=== PATIENT | male | born 1945 | race Caucasian/White ===

== ENCOUNTER → 2021-05-20 | Day surgery (SDC) | payer OTHER, BC ==
[2021-05-19 11:16] VITALS: BMI 22.4
[2021-05-20 13:10] VITALS: TEMP 98
[2021-05-20 13:51] VITALS: BP 130/76; PULSE 75
== END | disposition home or self-care (01) ==
LOC: JASU-ENDO 04:48
PROVIDERS: ATTEND Internal Medicine Gastroenterology
PROC: 0DBH8ZX Excision of Cecum, Via Natural or Artificial Opening Endoscopic, Diagnostic (ICD-10-PCS; principal; 2021-05-20 13:00)
DX: Z12.11 Encounter for screening for malignant neoplasm of colon (principal); Z86.010 Personal history of colon polyps; D12.0 Benign neoplasm of cecum; K57.30 Diverticulosis of large intestine without perforation or abscess without bleeding; Z98.0 Intestinal bypass and anastomosis status
CPT/HCPCS: 88305-TC

== ENCOUNTER 2022-04-04 13:54 | Inpatient (IN) | payer OTHER, BC ==
[2022-04-04] MEDS ORDERED: chlordiazePOXIDE HCL 25 MG CAPSULE PO ONE (14:41)
[2022-04-04] MEDS ORDERED: LACTATED RINGERS SOLUTION 1000 ML INFUS.BAG IV ONE (14:41)
[2022-04-04] MEDS ORDERED: chlordiazePOXIDE HCL 25 MG CAPSULE ONE (14:47)
[2022-04-04 15:16] LABS: EOS % 0.7 % (0-4.5); HEMATOCRIT 41.3 % (35.4-49); HEMOGLOBIN 14.2 GM/dL (11.7-16.9); LYMPH % 20.7 % (8-40); MCH 33.6 pg (25.7-33.7); MCHC 34.5 g/dl (32.0-35.9); MEAN CELL VOLUME 97.4 fl (80-96); MEAN PLT VOLUME 7.7 fl (7.5-11.1); NEUT % 65.6 % (42.8-82.8); PLATELET COUNT 249 10^3/uL (134-434); RBC 4.25 M/mm3 (4.00-5.60); RDW 12.7 % (11.9-15.9); WHITE BLOOD COUNT 4.9 K/mm3 (4.0-10.0)
[2022-04-04 15:30] LABS: ALBUMIN 3.9 g/dl (3.4-5.0); CALCIUM 9.1 mg/dL (8.5-10.1)
[2022-04-04 15:31] LABS: BLOOD UREA NITROGEN 12.9 mg/dL (7-18)
[2022-04-04 15:35] LABS: BILIRUBIN,TOTAL 0.4 mg/dL (0.2-1); TOT PROT 6.8 g/dl (6.4-8.2)
[2022-04-04 16:34] LABS: URINE APPEARANCE CLEAR; URINE BILIRUBIN NEGATIVE (NEGATIVE); URINE COLOR YELLOW; URINE GLUCOSE (UA) NEGATIVE (NEGATIVE); URINE KETONE NEGATIVE (NEGATIVE); URINE LEUK ESTERASE NEGATIVE (NEGATIVE); URINE NITRITE NEGATIVE (NEGATIVE); URINE PROTEIN NEGATIVE (NEGATIVE); URINE UROBILINOGEN 0.2 mg/dL (0.2-1.0)
[2022-04-04] MEDS ORDERED: dilTIAZem HCL 50 MG/10 ML - 10 ML VIAL IVPUSH ONE ×2 (17:06→21:21)
[2022-04-04] MEDS ORDERED: dilTIAZem HCL 30 MG TABLET PO ONE (18:24)
[2022-04-04] MEDS ORDERED: dilTIAZem HCL 30 MG TABLET ONE (18:56)
[2022-04-04 22:56] VITALS: BMI 22.1
[2022-04-04 23:27] LABS: MAGNESIUM 2.1 mg/dL (1.8-2.4)
[2022-04-04 23:31] LABS: PHOSPHOROUS 3.2 mg/dL (2.5-4.9)
[2022-04-04] MEDS ORDERED: TAMSULOSIN HCL 0.4 MG CAP PO ONE (23:47)
[2022-04-04] MEDS ORDERED: MELATONIN 5 MG TABLETS PO PRN (23:49)
[2022-04-04] MEDS ORDERED: LORazepam 1 MG TABLET PO PRN (23:49)
[2022-04-04] MEDS ORDERED: FOLIC ACID 1 MG TABLET (FP) PO ONE (23:51)
[2022-04-04] MEDS ORDERED: THIAMINE HCL 100 MG TABLET (FP) PO ONE (23:51)
[2022-04-05] MEDS: ROSUVASTATIN CA 20 MG TABLET PO SCH ×2 (00:06→21:18)
[2022-04-05] MEDS: dilTIAZem HCL 30 MG TABLET PO SCH ×3 (00:06→12:20)
[2022-04-05] MEDS ORDERED: METOPROLOL TARTRATE 5 MG/5 ML VIAL IVPUSH ONE (06:11)
[2022-04-05 08:06] LABS: HEMATOCRIT 40.4 % (35.4-49); HEMOGLOBIN 13.9 GM/dL (11.7-16.9); LYMPH % 23.9 % (8-40); MCH 33.5 pg (25.7-33.7); MCHC 34.4 g/dl (32.0-35.9); MEAN CELL VOLUME 97.2 fl (80-96); MEAN PLT VOLUME 7.8 fl (7.5-11.1); MONO % 11.9 % (3.8-10.2); NEUT % 61.2 % (42.8-82.8); PLATELET COUNT 227 10^3/uL (134-434); RBC 4.15 M/mm3 (4.00-5.60); RDW 12.6 % (11.9-15.9); WHITE BLOOD COUNT 5.2 K/mm3 (4.0-10.0)
[2022-04-05 08:21] LABS: CALCIUM 8.4 mg/dL (8.5-10.1)
[2022-04-05 08:22] LABS: ALBUMIN 3.5 g/dl (3.4-5.0); BLOOD UREA NITROGEN 10.7 mg/dL (7-18); MAGNESIUM 2.2 mg/dL (1.8-2.4)
[2022-04-05 08:25] LABS: PHOSPHOROUS 4.3 mg/dL (2.5-4.9)
[2022-04-05 08:26] LABS: BILIRUBIN,TOTAL 0.6 mg/dL (0.2-1); TOT PROT 6.2 g/dl (6.4-8.2)
[2022-04-05 08:48] LABS: CHOLESTEROL 130 mg/dL (50-200); TRIGLYCERIDES 128 mg/dL (0-150)
[2022-04-05 08:49] LABS: LDL CHOLESTEROL (ONLY SJRH) 62 mg/dL (5-100)
[2022-04-05 08:51] LABS: HDL CHOLESTEROL 55 mg/dL (40-60)
[2022-04-05] MEDS: MULTIVITAMINS (DAILY MVI) TABLET (FP) PO SCH (09:42)
[2022-04-05] MEDS: THIAMINE HCL 100 MG TABLET (FP) PO SCH (09:44)
[2022-04-05] MEDS: APIXABAN 5 MG TABLET PO SCH ×2 (09:44→21:18)
[2022-04-05] MEDS: FOLIC ACID 1 MG TABLET (FP) PO SCH (09:44)
[2022-04-05] MEDS: METOPROLOL TARTRATE 25 MG TABLET (FP) PO SCH ×2 (17:44→21:18)
[2022-04-06 07:02] LABS: HEMATOCRIT 36.4 % (35.4-49); HEMOGLOBIN 12.7 GM/dL (11.7-16.9); MCH 34.1 pg (25.7-33.7); MEAN CELL VOLUME 97.5 fl (80-96); MEAN PLT VOLUME 7.6 fl (7.5-11.1); PLATELET COUNT 215 10^3/uL (134-434); RBC 3.73 M/mm3 (4.00-5.60); RDW 12.6 % (11.9-15.9); WHITE BLOOD COUNT 4.5 K/mm3 (4.0-10.0)
[2022-04-06 07:35] LABS: BLOOD UREA NITROGEN 10.4 mg/dL (7-18); CALCIUM 8.2 mg/dL (8.5-10.1)
[2022-04-06 07:36] LABS: MAGNESIUM 2.1 mg/dL (1.8-2.4)
[2022-04-06 07:37] LABS: CREATININE 0.8 mg/dL (0.55-1.3); PHOSPHOROUS 4.3 mg/dL (2.5-4.9)
[2022-04-06] MEDS: TAMSULOSIN HCL 0.4 MG CAP PO SCH (09:06)
[2022-04-06] MEDS: METOPROLOL TARTRATE 25 MG TABLET (FP) PO SCH ×2 (09:55→21:04)
[2022-04-06] MEDS: FOLIC ACID 1 MG TABLET (FP) PO SCH (09:56)
[2022-04-06] MEDS: THIAMINE HCL 100 MG TABLET (FP) PO SCH (09:56)
[2022-04-06] MEDS: APIXABAN 5 MG TABLET PO SCH ×2 (09:56→21:04)
[2022-04-06] MEDS: MULTIVITAMINS (DAILY MVI) TABLET (FP) PO SCH (09:56)
[2022-04-06] MEDS ORDERED: dilTIAZem HCL 50 MG/10 ML - 10 ML VIAL IVPUSH ONE (11:10)
[2022-04-06] MEDS: ROSUVASTATIN CA 20 MG TABLET PO SCH (21:04)
[2022-04-07] MEDS ORDERED: LORazepam 0.5 MG TABLET PO PRN
[2022-04-07 07:09] LABS: HEMATOCRIT 38.1 % (35.4-49); HEMOGLOBIN 13.3 GM/dL (11.7-16.9); MCH 33.9 pg (25.7-33.7); MCHC 34.8 g/dl (32.0-35.9); MEAN CELL VOLUME 97.4 fl (80-96); MEAN PLT VOLUME 7.6 fl (7.5-11.1); PLATELET COUNT 234 10^3/uL (134-434); RBC 3.92 M/mm3 (4.00-5.60); RDW 12.7 % (11.9-15.9); WHITE BLOOD COUNT 5.5 K/mm3 (4.0-10.0)
[2022-04-07 07:39] LABS: CALCIUM 8.8 mg/dL (8.5-10.1)
[2022-04-07 07:40] LABS: ALBUMIN 3.5 g/dl (3.4-5.0); BLOOD UREA NITROGEN 13.8 mg/dL (7-18); MAGNESIUM 2.1 mg/dL (1.8-2.4)
[2022-04-07 07:43] LABS: BILIRUBIN,TOTAL 0.4 mg/dL (0.2-1); CREATININE 0.9 mg/dL (0.55-1.3); PHOSPHOROUS 4.2 mg/dL (2.5-4.9); TOT PROT 6.1 g/dl (6.4-8.2)
[2022-04-07] MEDS: TAMSULOSIN HCL 0.4 MG CAP PO SCH (09:25)
[2022-04-07] MEDS: THIAMINE HCL 100 MG TABLET (FP) PO SCH (09:25)
[2022-04-07] MEDS: METOPROLOL TARTRATE 25 MG TABLET (FP) PO SCH ×2 (09:25→21:27)
[2022-04-07] MEDS: APIXABAN 5 MG TABLET PO SCH ×2 (09:25→21:27)
[2022-04-07] MEDS: MULTIVITAMINS (DAILY MVI) TABLET (FP) PO SCH (09:25)
[2022-04-07] MEDS: FOLIC ACID 1 MG TABLET (FP) PO SCH (09:25)
[2022-04-07] MEDS: ROSUVASTATIN CA 20 MG TABLET PO SCH (21:27)
[2022-04-08 08:04] LABS: HEMATOCRIT 42.6 % (35.4-49); HEMOGLOBIN 14.8 GM/dL (11.7-16.9); MCH 33.8 pg (25.7-33.7); MCHC 34.7 g/dl (32.0-35.9); MEAN CELL VOLUME 97.4 fl (80-96); MEAN PLT VOLUME 7.8 fl (7.5-11.1); PLATELET COUNT 269 10^3/uL (134-434); RBC 4.37 M/mm3 (4.00-5.60); RDW 12.7 % (11.9-15.9); WHITE BLOOD COUNT 5.9 K/mm3 (4.0-10.0)
[2022-04-08 08:27] LABS: BLOOD UREA NITROGEN 14.8 mg/dL (7-18); MAGNESIUM 2.2 mg/dL (1.8-2.4)
[2022-04-08] MEDS: FOLIC ACID 1 MG TABLET (FP) PO SCH (09:06)
[2022-04-08] MEDS: APIXABAN 5 MG TABLET PO SCH ×2 (09:06→21:39)
[2022-04-08] MEDS: MULTIVITAMINS (DAILY MVI) TABLET (FP) PO SCH (09:06)
[2022-04-08] MEDS: THIAMINE HCL 100 MG TABLET (FP) PO SCH (09:06)
[2022-04-08] MEDS: TAMSULOSIN HCL 0.4 MG CAP PO SCH (09:06)
[2022-04-08] MEDS: SOTALOL HCL 80 MG TABLET (FP) PO SCH ×2 (09:06→21:39)
[2022-04-08] MEDS: dilTIAZem HCL 30 MG TABLET PO SCH ×2 (15:46→21:39)
[2022-04-08] MEDS: ROSUVASTATIN CA 20 MG TABLET PO SCH (21:39)
[2022-04-09] MEDS: dilTIAZem HCL 30 MG TABLET PO SCH ×2 (06:29→13:32)
[2022-04-09 07:05] LABS: HEMATOCRIT 36.6 % (35.4-49); HEMOGLOBIN 12.7 GM/dL (11.7-16.9); MCH 33.8 pg (25.7-33.7); MCHC 34.6 g/dl (32.0-35.9); MEAN CELL VOLUME 97.7 fl (80-96); MEAN PLT VOLUME 7.7 fl (7.5-11.1); PLATELET COUNT 237 10^3/uL (134-434); RBC 3.75 M/mm3 (4.00-5.60); RDW 12.6 % (11.9-15.9)
[2022-04-09 07:23] LABS: CALCIUM 8.8 mg/dL (8.5-10.1)
[2022-04-09 07:24] LABS: BLOOD UREA NITROGEN 17.4 mg/dL (7-18); MAGNESIUM 2.3 mg/dL (1.8-2.4)
[2022-04-09 07:27] LABS: PHOSPHOROUS 4.3 mg/dL (2.5-4.9)
[2022-04-09] MEDS: APIXABAN 5 MG TABLET PO SCH ×2 (09:27→22:01)
[2022-04-09] MEDS: FOLIC ACID 1 MG TABLET (FP) PO SCH (09:27)
[2022-04-09] MEDS: SOTALOL HCL 80 MG TABLET (FP) PO SCH ×2 (09:27→22:01)
[2022-04-09] MEDS: THIAMINE HCL 100 MG TABLET (FP) PO SCH (09:27)
[2022-04-09] MEDS: MULTIVITAMINS (DAILY MVI) TABLET (FP) PO SCH (09:27)
[2022-04-09] MEDS: TAMSULOSIN HCL 0.4 MG CAP PO SCH (09:27)
[2022-04-09] MEDS: ROSUVASTATIN CA 20 MG TABLET PO SCH (22:01)
[2022-04-10 07:11] LABS: HEMATOCRIT 34.5 % (35.4-49); HEMOGLOBIN 12.1 GM/dL (11.7-16.9); MCH 34.1 pg (25.7-33.7); MCHC 35.2 g/dl (32.0-35.9); MEAN PLT VOLUME 7.5 fl (7.5-11.1); PLATELET COUNT 216 10^3/uL (134-434); RBC 3.55 M/mm3 (4.00-5.60); RDW 12.5 % (11.9-15.9); WHITE BLOOD COUNT 4.9 K/mm3 (4.0-10.0)
[2022-04-10 07:32] LABS: CALCIUM 8.5 mg/dL (8.5-10.1)
[2022-04-10 07:33] LABS: BLOOD UREA NITROGEN 19.4 mg/dL (7-18)
[2022-04-10 07:35] LABS: MAGNESIUM 2.3 mg/dL (1.8-2.4)
[2022-04-10 07:36] LABS: CREATININE 0.9 mg/dL (0.55-1.3); PHOSPHOROUS 4.3 mg/dL (2.5-4.9)
[2022-04-10] MEDS: TAMSULOSIN HCL 0.4 MG CAP PO SCH (09:36)
[2022-04-10] MEDS: FOLIC ACID 1 MG TABLET (FP) PO SCH (09:36)
[2022-04-10] MEDS: SOTALOL HCL 80 MG TABLET (FP) PO SCH (09:36)
[2022-04-10] MEDS: THIAMINE HCL 100 MG TABLET (FP) PO SCH (09:36)
[2022-04-10] MEDS: APIXABAN 5 MG TABLET PO SCH (09:36)
[2022-04-10] MEDS: MULTIVITAMINS (DAILY MVI) TABLET (FP) PO SCH (09:36)
[2022-04-10 14:57] VITALS: BP 96/51; PULSE 51; TEMP 98.2
== END 2022-04-10 19:29 | disposition home or self-care (01) | DRG 309 ==
LOC: JER 13:54 → JERBED 18:07 → J4W 22:13
PROVIDERS: ADMIT Internal Medicine; ATTEND Internal Medicine
DX: I48.92 Unspecified atrial flutter (principal); I50.1 Left ventricular failure, unspecified; E87.1 Hypo-osmolality and hyponatremia; I24.8 Other forms of acute ischemic heart disease; I45.2 Bifascicular block; R00.0 Tachycardia, unspecified; F10.20 Alcohol dependence, uncomplicated; E78.5 Hyperlipidemia, unspecified; N40.0 Benign prostatic hyperplasia without lower urinary tract symptoms; I11.0 Hypertensive heart disease with heart failure; I44.1 Atrioventricular block, second degree; E78.00 Pure hypercholesterolemia, unspecified; I48.0 Paroxysmal atrial fibrillation
CPT/HCPCS: 36415; 70450-TC; 71045-TC-FY; 80048; 80053; 80061; 81003; 83735; 84100; 84439; 84443; 84484; 85025; 85027; 87086; 93005; 93010; 93306-TC; 97116-GP; 97162-GP; 99285-25; C9803-CS; U0003; U0005

== ENCOUNTER 2024-06-13 04:50 | Day surgery (SDC) | payer OTHER, BC ==
[2024-06-12 09:31] VITALS: BMI 22.1
[2024-06-13 09:14] VITALS: TEMP 98.1
[2024-06-13 09:17] VITALS: RESP 18
[2024-06-13 09:19] VITALS: BP 148/66; PULSE 58
== END 2024-06-13 09:35 | disposition home or self-care (01) ==
LOC: JASU-ENDO 04:50
PROVIDERS: ATTEND Internal Medicine Gastroenterology
PROC: 0DBM8ZX Excision of Descending Colon, Via Natural or Artificial Opening Endoscopic, Diagnostic (ICD-10-PCS; 2024-06-13)
PROC: 0DBH8ZX Excision of Cecum, Via Natural or Artificial Opening Endoscopic, Diagnostic (ICD-10-PCS; principal; 2024-06-13 09:00)
DX: Z12.11 Encounter for screening for malignant neoplasm of colon (principal); D12.0 Benign neoplasm of cecum; K63.5 Polyp of colon; Z85.038 Personal history of other malignant neoplasm of large intestine; Z86.010 Personal history of colon polyps
CPT/HCPCS: 88305-TC

== ENCOUNTER 2024-06-22 09:44 | Inpatient (IN) | payer OTHER, BC ==
[2024-06-22] MEDS ORDERED: ACETAMINOPHEN INJECTION 100 ML ONE (10:23)
[2024-06-22] MEDS ORDERED: MAG HYDROX/AL HYDROX/SIMETH 30 ML UNIT-DOSE CUP ONE (10:25)
[2024-06-22] MEDS ORDERED: ONDANSETRON 4 MG/2 ML VIAL ONE ×2 (10:25→11:11)
[2024-06-22] MEDS ORDERED: FAMOTIDINE 20 MG/50 ML IVPB 20 MG/50 ML MG IVPB ONE (10:25)
[2024-06-22] MEDS: MAG HYDROX/AL HYDROX/SIMETH 30 ML UNIT-DOSE CUP PO ONE (10:40)
[2024-06-22] MEDS: SODIUM CHLORIDE 1,000 ML IV STA (10:40)
[2024-06-22] MEDS: ACETAMINOPHEN 1000 MG/100 ML BAG IVPB ONE (10:45)
[2024-06-22] MEDS: FAMOTIDINE 20 MG/50 ML IVPB 20 MG/50 ML MG IVPB ONE (10:45)
[2024-06-22] MEDS: ONDANSETRON 4 MG/2 ML VIAL IVPUSH ONE (11:20)
[2024-06-22 11:32] LABS: BASO % 0.2 % (0-2.0); HEMATOCRIT 42.9 % (35.4-49); HEMOGLOBIN 14.6 GM/dL (11.7-16.9); LYMPH % 2.4 % (8-40); MCH 32.8 pg (25.7-33.7); MEAN CELL VOLUME 96.4 fl (80-96); MEAN PLT VOLUME 7.1 fl (7.5-11.1); MONO % 7.2 % (3.8-10.2); NEUT % 90.2 % (42.8-82.8); PLATELET COUNT 269 10^3/uL (134-434); RBC 4.45 M/mm3 (4.00-5.60); RDW 12.3 % (11.9-15.9); WHITE BLOOD COUNT 14.5 K/mm3 (4.0-10.0)
[2024-06-22 11:39] LABS: INR 1.06 (0.83-1.09)
[2024-06-22 11:52] LABS: POTASSIUM 4.6 mmol/L (3.5-5.1)
[2024-06-22 11:54] LABS: BLOOD UREA NITROGEN 17.5 mg/dL (7-18); CALCIUM 9.7 mg/dL (8.5-10.1); MAGNESIUM 2.3 mg/dL (1.8-2.4)
[2024-06-22] MEDS ORDERED: metoPROLOL SUCCINATE 25 MG TAB.SR.24H (FP) PO ONE (11:56)
[2024-06-22 11:57] LABS: CREATININE 0.9 mg/dL (0.55-1.3)
[2024-06-22 11:59] LABS: TOT PROT 7.2 g/dl (6.4-8.2)
[2024-06-22] MEDS: metoPROLOL SUCCINATE 25 MG TAB.SR.24H (FP) PO ONE (12:02)
[2024-06-22 12:47] LABS: HIV INTERPRETATION NEGATIVE (NEGATIVE)
[2024-06-22] MEDS ORDERED: BISACODYL 10 MG SUPP.RECT PR PRN (15:51)
[2024-06-22] MEDS ORDERED: SENNOSIDES 8.6MG TABLET (FP) PO PRN (15:52)
[2024-06-22] MEDS ORDERED: ACETAMINOPHEN 325 MG TABLET (FP) PO PRN (15:54)
[2024-06-22] MEDS ORDERED: POLYETHYLENE GLYCOL (HEALTHYLAX) 3350 17 GM PACKET PO SCH (16:00)
[2024-06-22] MEDS: POLYETHYLENE GLYCOL (HEALTHYLAX) 3350 17 GM PACKET PO SCH (22:35)
[2024-06-22] MEDS: ROSUVASTATIN CA 20 MG TABLET PO SCH (22:35)
[2024-06-22] MEDS: APIXABAN 5 MG TABLET PO SCH (22:35)
[2024-06-22] MEDS: METOPROLOL TARTRATE 25 MG TABLET (FP) PO SCH (22:35)
[2024-06-23 02:23] VITALS: BMI 24.0
[2024-06-23] MEDS: TERAZOSIN HCL 5 MG CAPSULE PO SCH (02:26)
[2024-06-23 07:14] LABS: BASO % 0.5 % (0-2.0); EOS % 1.1 % (0-4.5); HEMATOCRIT 39.4 % (35.4-49); HEMOGLOBIN 13.5 GM/dL (11.7-16.9); LYMPH % 17.4 % (8-40); MCH 33.1 pg (25.7-33.7); MCHC 34.2 g/dl (32.0-35.9); MEAN CELL VOLUME 96.7 fl (80-96); MEAN PLT VOLUME 7.2 fl (7.5-11.1); MONO % 9.3 % (3.8-10.2); NEUT % 71.7 % (42.8-82.8); PLATELET COUNT 247 10^3/uL (134-434); RBC 4.07 M/mm3 (4.00-5.60); RDW 12.3 % (11.9-15.9); WHITE BLOOD COUNT 7.4 K/mm3 (4.0-10.0)
[2024-06-23 07:22] LABS: POTASSIUM 4.5 mmol/L (3.5-5.1)
[2024-06-23 07:24] LABS: ALBUMIN 3.4 g/dl (3.4-5.0); CALCIUM 9.1 mg/dL (8.5-10.1)
[2024-06-23 07:25] LABS: BLOOD UREA NITROGEN 10.6 mg/dL (7-18)
[2024-06-23 07:28] LABS: CREATININE 0.8 mg/dL (0.55-1.3)
[2024-06-23 07:29] LABS: TOT PROT 6.2 g/dl (6.4-8.2)
[2024-06-23] MEDS: BISACODYL 5 MG TABLET.DR (FP) PO ONE (13:36)
[2024-06-23] MEDS: POLYETHYLENE GLYCOL (HEALTHYLAX) 3350 17 GM PACKET PO SCH (17:24)
[2024-06-23] MEDS: ONDANSETRON 4 MG/2 ML VIAL IVPUSH PRN (17:43)
[2024-06-23] MEDS: SENNOSIDES 8.6MG TABLET (FP) PO SCH (21:35)
[2024-06-24 08:09] LABS: HEMATOCRIT 36.5 % (35.4-49); HEMOGLOBIN 12.9 GM/dL (11.7-16.9); MCH 33.5 pg (25.7-33.7); MCHC 35.3 g/dl (32.0-35.9); RBC 3.85 M/mm3 (4.00-5.60); RDW 12.2 % (11.9-15.9); WHITE BLOOD COUNT 5.3 K/mm3 (4.0-10.0)
[2024-06-24 08:10] LABS: BASO % 0.6 % (0-2.0); EOS % 2.3 % (0-4.5); LYMPH % 23.4 % (8-40); MEAN PLT VOLUME 7.3 fl (7.5-11.1); MONO % 12.6 % (3.8-10.2); NEUT % 61.1 % (42.8-82.8); PLATELET COUNT 250 10^3/uL (134-434)
[2024-06-24 08:18] LABS: POTASSIUM 4.3 mmol/L (3.5-5.1)
[2024-06-24 08:20] LABS: CALCIUM 8.5 mg/dL (8.5-10.1)
[2024-06-24 08:21] LABS: ALBUMIN 3.2 g/dl (3.4-5.0); BLOOD UREA NITROGEN 11.4 mg/dL (7-18)
[2024-06-24 08:24] LABS: CREATININE 0.8 mg/dL (0.55-1.3); PHOSPHOROUS 3.7 mg/dL (2.5-4.9)
[2024-06-24 08:25] LABS: BILIRUBIN,TOTAL 0.6 mg/dL (0.2-1)
[2024-06-24 08:26] LABS: TOT PROT 5.7 g/dl (6.4-8.2)
[2024-06-24 10:23] VITALS: RESP 18
[2024-06-24 15:44] VITALS: BP 136/96; PULSE 92; TEMP 97.4
== END 2024-06-24 17:24 | disposition home or self-care (01) | DRG 392 ==
LOC: JER 09:44 → JERBED 11:43 → UNDOADMOB 11:43 → INTOOBSV 11:43 → JERBED 15:54 → J4W 21:48 → OBSVTOIN 06-23 13:20
PROVIDERS: ADMIT Internal Medicine; ATTEND Internal Medicine
DX: K59.00 Constipation, unspecified (principal); I47.10 Supraventricular tachycardia, unspecified; I48.3 Typical atrial flutter; E87.1 Hypo-osmolality and hyponatremia; I48.0 Paroxysmal atrial fibrillation; Z79.01 Long term (current) use of anticoagulants; N40.0 Benign prostatic hyperplasia without lower urinary tract symptoms; I10 Essential (primary) hypertension; E78.5 Hyperlipidemia, unspecified; K52.89 Other specified noninfective gastroenteritis and colitis
CPT/HCPCS: 0241U-QW; 36415; 71045-TC-FY; 74177-TC; 80053; 83690; 83735; 84100; 84443; 84484; 85025; 85610; 85730; 86803; 86850; 86900; 86901; 87389; 93005; 93010; 99285-25; G0378; J0131; Q9967